=== PATIENT | female | born 1990 | race Caucasian/White ===

== ENCOUNTER 2018-03-26 20:20 | Emergency (ER) | payer BC ==
[2018-03-26] MEDS ORDERED: KETOROLAC 30 MG/ML VIAL IVP STA (20:55)
[2018-03-26] MEDS ORDERED: ONDANSETRON 4 MG/2 ML VIAL IVP STA (20:55)
[2018-03-26] MEDS ORDERED: SODIUM CHLORIDE 0.9% 1,000 ML IV ONE (20:55)
[2018-03-26 20:57] LABS: BILIRUBIN,URINE NEGATIVE (NEGATIVE); GLUCOSE, URINE (UA) NEGATIVE (NEGATIVE); KETONES,URINE (UA) 15 mg/dL (NEGATIVE); LEUKOCYTE ESTERASE, URINE NEGATIVE (NEGATIVE); NITRITE,URINE NEGATIVE (NEGATIVE); OCCULT BLOOD,URINE NEGATIVE (NEGATIVE); PH,URINE 6.5 PH (5.0-7.5); PROTEIN,URINE NEGATIVE (NEGATIVE); UROBILINOGEN,URINE 1 (NORMAL) E.U./dL (NORMAL)
--- NOTE | 2018-03-26 20:58 | ED Physician Documentation ---
PD HPI ABD PAIN - Stated complaint Stated Complaint: VOMITING/ADB CRAMPING - Chief complaint Chief Complaint: Abd Pain - History obtained from History obtained from: Patient, Family - History of Present Illness Timing - onset: Enter time (1529), Today Timing - duration: Hours Timing - details: Abrupt onset, Still present Quality: Sharp, Pain Location: RUQ, Epigastric Improved by: Laying still Worsened by: Moving, Breathing, Position, Palpation Associated symptoms: Nausea, Vomiting Similar symptoms before: Has not had sx before Recently seen: Not recently seen - Additional information Additional information: 27-year-old female who has had gastric sleeve surgery about 6 months ago has lost over 80 pounds and today she was sitting at [employer] when she began to develop some pain in the right upper quadrant. She states that the pain persisted she has become nauseated she has had some vomiting and when the pain persisted she is come to the emergency department. She states that she is today had some eggs to eat for breakfast in the morning and had eaten a protein bar at about noon. She denies prior episodes of similar pain. Review of Systems Constitutional: denies: Fever Eyes: denies: Decreased vision Ears: denies: Ear pain Nose: denies: Rhinorrhea / runny nose, Congestion Throat: denies: Sore throat Cardiac: denies: Chest pain / pressure, Palpitations Respiratory: denies: Dyspnea, Cough GI: reports: Abdominal Pain, Nausea, Vomiting : denies: Dysuria, Frequency Skin: denies: Rash Musculoskeletal: denies: Neck pain, Back pain, Extremity pain Neurologic: denies: Generalized weakness, Focal weakness, Numbness PD PAST MEDICAL HISTORY - Past Medical History Past Medical History: No - Past Surgical History Past Surgical History: Yes General: Gastric surgery - Present Medications Home Medications: Ambulatory Orders Medication Instructions Recorded Confirmed Bcp 03/26/18 - Allergies Allergies/Adverse Reactions: Allergies Allergy/AdvReac Type Severity Reaction Status Date / Time No Known Drug Allergies Allergy Verified 03/26/18 20:27 - Social History Does the pt smoke?: No Smoking Status: Never smoker Does the pt drink ETOH?: No Does the pt have substance abuse?: No - Immunizations Immunizations are current?: Yes PD ED PE NORMAL - Vitals Vital signs reviewed: Yes (normal) - General General: Alert and oriented X 3, No acute distress, Well developed/nourished - HEENT HEENT: Atraumatic, PERRL, EOMI - Neck Neck: Supple, no meningeal sign, No bony TTP - Cardiac Cardiac: RRR, No murmur - Respiratory Respiratory: No respiratory distress, Clear bilaterally - Abdomen Abdomen: Soft, Other (RUQ pain with arrest of respiration with palpation and inspiration ) - Back Back: No CVA TTP, No spinal TTP - Derm Derm: Normal color, Warm and dry, No rash - Extremities Extremities: No deformity, No edema - Neuro Neuro: Alert and oriented X 3, 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, No motor deficit, No sensory deficit, Normal speech Eye Opening: Spontaneous Motor: Obeys Commands Verbal: Oriented GCS Score: 15 - Psych Psych: Normal mood, Normal affect Results - Vitals Vitals: Vital Signs - 24 hr 03/26/18 03/26/18 20:25 21:33 Temperature 36.0 C L Heart Rate 66 47 L Respiratory 18 18 Rate Blood Pressure 115/70 118/55 L O2 Saturation 100 100 Oxygen O2 Source Room air - Labs Labs: Laboratory Tests 03/26/18 03/26/18 03/26/18 20:30 20:35 20:35 WBC 12.9 H RBC 4.31 Hgb 11.1 L Hct 34.8 L MCV 80.7 L MCH 25.7 L MCHC 31.9 L RDW 13.4 Plt Count 333 MPV 8.6 Neut # (Auto) 10.4 H Lymph # (Auto) 1.7 [place] # (Auto) 0.7 Eos # (Auto) 0.0 Baso # (Auto) 0.1 Absolute Nucleated RBC 0.01 Nucleated RBC % 0.1 Sodium 133 L Potassium 3.3 L Chloride 102 Carbon Dioxide 23 Anion Gap 8.0 BUN 14 Creatinine 0.7 Estimated GFR (MDRD) 100 Glucose 115 H Calcium 8.6 Total Bilirubin 0.8 AST 68 H ALT 40 Alkaline Phosphatase 75 Total Protein 7.4 Albumin 3.7 Globulin 3.7 Albumin/Globulin Ratio 1.0 Lipase 48 Urine Color YELLOW Urine Clarity CLEAR Urine pH 6.5 Ur Specific [place] 1.025 Urine Protein NEGATIVE Urine Glucose (UA) NEGATIVE Urine Ketones 15 H Urine Occult Blood NEGATIVE Urine Nitrite NEGATIVE Urine Bilirubin NEGATIVE Urine Urobilinogen 1 (NORMAL) Ur Leukocyte Esterase NEGATIVE Ur Microscopic Review NOT INDICATED Urine Culture Comments NOT INDICATED Urine HCG, Qual NEGATIVE - Rads (name of study) gb ultrasound Radiology: Prelim report reviewed (Impression: Multiple cholelithiasis without wall thickening or ductal dilation.), EMP read indepedently, See rad report Procedures - Bedside sono Bedside sono by EMP: With use of bedside ultrasound the right upper quadrant is imaged gallbladder is distended there are no obvious large stones there is some echogenicity to the inferior portion of the gallbladder. After manual decompression of the gallbladder the pain symptoms are somewhat improved reexamination of the gall bladder shows it to be slightly smaller than previously. PD MEDICAL DECISION MAKING - ED course Complexity details: reviewed results, re-evaluated patient, considered differential, d/w patient, d/w family ED course: 27-year-old female with a greater than 80 pound weight loss in the past 6 months has developed some symptoms of right upper quadrant pain today and has a distended gallbladder on bedside ultrasound examination she has some improvement with manual decompression of the gallbladder. She is administered intravenous saline Toradol and Zofran. Departure - Departure Disposition: 01 Home, Self Care Clinical Impression: Cholelithiasis Qualifiers: Cholelithiasis location: gallbladder Cholecystitis presence: without cholecystitis Biliary obstruction: without biliary obstruction Qualified Code(s): K80.20 - Calculus of gallbladder without cholecystitis without obstruction Condition: Stable Instructions: ED Gallstone W Biliary Colic Follow-Up: Gala Gorman MD [Primary Care Provider] - Radhames Calix MD [Provider Admit Priv/Credential] -
[2018-03-26 20:59] LABS: BASOPHILS # (AUTO) 0.1 10^3/uL (0.0-0.1); BASOPHILS % (AUTO) 0.5 %; EOSINOPHILS % (AUTO) 0.3 %; HGB - HEMOGLOBIN 11.1 g/dL (12.0-16.0); LYMPHOCYTES # (AUTO) 1.7 10^3/uL (1.5-3.5); LYMPHOCYTES % (AUTO) 13.5 %; MEAN CORPUSCULAR HEMOGLOBIN 25.7 pg (27.0-31.0); MEAN CORPUSCULAR HGB CONC 31.9 g/dL (32.0-36.0); MEAN CORPUSCULAR VOLUME 80.7 fL (81.0-99.0); MEAN PLATELET VOLUME 8.6 fL (7.9-10.8); MONOCYTES # (AUTO) 0.7 10^3/uL (0.0-1.0); MONOCYTES % (AUTO) 5.3 %; NEUTROPHILS # (AUTO) 10.4 10^3/uL (1.5-6.6); NEUTROPHILS % (AUTO) 80.4 %; PLT - PLATELET COUNT 333 10^3/uL (130-450); RED BLOOD COUNT 4.31 10^6/uL (4.20-5.40); RED CELL DISTRIBUTION WIDTH 13.4 % (12.0-15.0); WHITE BLOOD COUNT 12.9 x10^3/uL (4.8-10.8)
[2018-03-26 21:04] LABS: CLARITY,URINE CLEAR (CLEAR); HCG UR QUAL NEGATIVE
[2018-03-26 21:10] LABS: ALBUMIN 3.7 g/dL (3.2-5.5); BILIRUBIN,TOTAL 0.8 mg/dL (0.2-1.0); CALCIUM 8.6 mg/dL (8.5-10.3); CREATININE 0.7 mg/dL (0.4-1.0); TOTAL PROTEIN 7.4 g/dL (6.7-8.2)
[2018-03-26] MEDS ORDERED: POTASSIUM BICARB 25 MEQ TABLET PO STA (21:29)
--- NOTE | 2018-03-26 22:21 | Ultrasound Report ---
Reason: RUQ pain Procedure Date: 03/26/2018 Accession Number: [id number] / [id number] Procedure: US - Abdomen Limited CPT Code: FULL RESULT: EXAM: ABDOMEN ULTRASOUND LIMITED, RUQ EXAM DATE: 03/26/2018 09:40 PM. CLINICAL HISTORY: Right upper quadrant pain. COMPARISON: None. TECHNIQUE: Real-time scanning was performed with static images obtained. FINDINGS: Liver: Normal in size and echotexture. 18.3 cm. Main portal vein flow: Hepatopetal. Gallbladder: Multiple tiny shadowing gallstones. No wall thickening. Positive sonographic Cantu's sign. Biliary System: CBD measures 5 mm. No intrahepatic or extrahepatic ductal dilatation. Other: The visualized pancreas and right kidney are unremarkable. No free fluid. IMPRESSION: Multiple cholelithiasis without wall thickening or ductal dilatation. RADIA
[2018-03-26 22:48] VITALS: BP 111/67
== END 2018-03-26 22:43 | disposition home or self-care (01) ==
LOC: ED 20:20
DX: K82.0 Obstruction of gallbladder (principal)
CPT/HCPCS: 36415; 76705; 80053; 81003; 81025; 83690; 85025; 96361; 96374; 99283; 99284; A9270; 81001; 87086

== ENCOUNTER 2018-04-04 21:11 | Emergency (ER) | payer BC ==
[2018-04-04] MEDS ORDERED: fentaNYL 100 MCG/2 ML VIAL IVP STA (21:32)
[2018-04-04] MEDS ORDERED: ONDANSETRON 4 MG/2 ML VIAL IVP STA (21:32)
--- NOTE | 2018-04-04 21:32 | ED Physician Documentation ---
PD HPI ABD PAIN - Stated complaint Stated Complaint: NAUSEA/VOMITING - Chief complaint Chief Complaint: Abd Pain - Additional information Additional information: 28-year-old female presents the emergency department with complaints of epigastr ic pain with associated nausea and vomiting for the past 6 hours. The patient was recently diagnosed with gallstones. The pain today is similar to a biliary Colic in the past. The patient is also status post a gastric sleeve. No reports of chest pain, shortness of breath or lower abdominal pain or dysuria or diarrhea. Symptoms are described as moderate. No relieving factors Review of Systems Constitutional: denies: Fever, Chills Eyes: denies: Discharge Ears: denies: Ear pain Nose: denies: Congestion Throat: denies: Sore throat Cardiac: denies: Chest pain / pressure Respiratory: denies: Dyspnea GI: reports: Abdominal Pain, Nausea, Vomiting. denies: Constipation : denies: Dysuria Skin: denies: Rash Musculoskeletal: denies: Neck pain Neurologic: denies: Syncope PD PAST MEDICAL HISTORY - Past Surgical History Past Surgical History: Yes General: Gastric surgery - Present Medications Home Medications: Ambulatory Orders Medication Instructions Recorded Confirmed Bcp 1 tab PO DAILY 03/26/18 Famotidine [Pepcid] 20 mg PO BID #30 tablet 04/04/18 Ondansetron HCl [Zofran] 4 mg PO Q6HR PRN #30 tablet 04/04/18 - Allergies Allergies/Adverse Reactions: Allergies Allergy/AdvReac Type Severity Reaction Status Date / Time No Known Drug Allergies Allergy Verified 04/04/18 21:17 - Social History Does the pt smoke?: No Smoking Status: Never smoker Does the pt drink ETOH?: No Does the pt have substance abuse?: No - Immunizations Immunizations are current?: Yes PD ED PE NORMAL - General General: Alert and oriented X 3, No acute distress - HEENT HEENT: Atraumatic, PERRL, EOMI, Ears normal - Neck Neck: Supple, no meningeal sign - Cardiac Cardiac: RRR, Strong equal pulses - Respiratory Respiratory: No respiratory distress, Clear bilaterally - Abdomen Abdomen: Soft, Non distended. No: Non tender (Tender palpation in the epigastrium, no rebound or peritoneal signs) - Derm Derm: Normal color - Extremities Extremities: No deformity - Neuro Neuro: Alert and oriented X 3, Normal speech - Psych Psych: Normal affect Results - Vitals Vitals: Vital Signs - 24 hr 04/04/18 04/04/18 04/04/18 21:15 21:30 22:20 Heart Rate 77 54 L Respiratory 18 18 16 Rate Blood Pressure 122/70 124/69 O2 Saturation 100 100 Oxygen O2 Source Room air - Labs Labs: Laboratory Tests 04/04/18 04/04/18 04/04/18 21:28 21:28 21:28 WBC 9.0 RBC 4.19 L Hgb 11.2 L Hct 33.8 L MCV 80.6 L MCH 26.7 L MCHC 33.2 RDW 14.4 Plt Count 305 MPV 8.8 Neut # (Auto) 6.6 Lymph # (Auto) 1.8 [place] # (Auto) 0.5 Eos # (Auto) 0.0 Baso # (Auto) 0.0 Absolute Nucleated RBC 0.00 Nucleated RBC % 0.0 Sodium 138 Potassium 3.6 Chloride 104 Carbon Dioxide 24 Anion Gap 10.0 BUN 14 Creatinine 0.7 Estimated GFR (MDRD) 99 Glucose 105 H Calcium 8.7 Total Bilirubin 1.3 H AST 102 H ALT 71 H Alkaline Phosphatase 133 H Total Protein 7.6 Albumin 3.8 Globulin 3.8 Albumin/Globulin Ratio 1.0 Lipase 46 Serum HCG, Qual NEGATIVE Urine Color Urine Clarity Urine pH Ur Specific [place] Urine Protein Urine Glucose (UA) Urine Ketones Urine Occult Blood Urine Nitrite Urine Bilirubin Urine Urobilinogen Ur Leukocyte Esterase Urine RBC Urine WBC Ur Squamous Epith Cells Urine Bacteria Ur Microscopic Review Urine Culture Comments 04/04/18 22:30 WBC RBC Hgb Hct MCV MCH MCHC RDW Plt Count MPV Neut # (Auto) Lymph # (Auto) [place] # (Auto) Eos # (Auto) Baso # (Auto) Absolute Nucleated RBC Nucleated RBC % Sodium Potassium Chloride Carbon Dioxide Anion Gap BUN Creatinine Estimated GFR (MDRD) Glucose Calcium Total Bilirubin AST ALT Alkaline Phosphatase Total Protein Albumin Globulin Albumin/Globulin Ratio Lipase Serum HCG, Qual Urine Color YELLOW Urine Clarity HAZY Urine pH 7.0 Ur Specific [place] 1.020 Urine Protein NEGATIVE Urine Glucose (UA) NEGATIVE Urine Ketones NEGATIVE Urine Occult Blood NEGATIVE Urine Nitrite NEGATIVE Urine Bilirubin SMALL H Urine Urobilinogen 4 H Ur Leukocyte Esterase NEGATIVE Urine RBC 0-5 Urine WBC 0-3 Ur Squamous Epith Cells MOD Squamous H Urine Bacteria None Seen Ur Microscopic Review INDICATED Urine Culture Comments NOT INDICATED - Rads (name of study) CT abd/pelvis Radiology: Final report received, See rad report (IMPRESSION: Sleeve gastrectomy noted. Otherwise unremarkable abdomen and pelvis CT. ) PD MEDICAL DECISION MAKING - ED course ED course: Reevaluation the patient is resting comfortably and appears much improved and her workup does not reveal any acute etiology that would necessitate admission to the hospital or acute surgical consultation. The patient appears appropriate for discharge at this time and ongoing outpatient management. I discussed warning signs and recommended returning for any worsening or any concerns Departure - Departure Disposition: Home, Self Care Clinical Impression: Abdominal pain Qualifiers: Abdominal location: upper abdomen, unspecified Qualified Code(s): R10.10 - Upper abdominal pain, unspecified Condition: Good Instructions: Abdominal Pain, ED Gallstone W Biliary Colic, ED Nausea Vomiting, ED Gastritis Follow-Up: Gala Gorman MD [Primary Care Provider] - Within 1 week Prescriptions: Ondansetron HCl [Zofran] 4 mg PO Q6HR PRN #30 tablet PRN Reason: Nausea / Vomiting Famotidine [Pepcid] 20 mg PO BID #30 tablet Comments: Please follow-up with the general surgeon as scheduled for ongoing evaluation of your gallbladder Please return to the emergency department for any worsening or any concerns
[2018-04-04] MEDS ORDERED: FAMOTIDINE 20 MG in SODIUM CHLORIDE 0.9% 50 ML IV STA (21:33)
[2018-04-04] MEDS ORDERED: IOVERSOL 320 50 ML VIAL ONE (21:38)
[2018-04-04] MEDS ORDERED: IOVERSOL 320 100 ML VIAL IVP ONE ×2 (21:38→22:54)
[2018-04-04 21:44] LABS: BASOPHILS % (AUTO) 0.4 %; EOSINOPHILS % (AUTO) 0.5 %; HGB - HEMOGLOBIN 11.2 g/dL (12.0-16.0); LYMPHOCYTES # (AUTO) 1.8 10^3/uL (1.5-3.5); LYMPHOCYTES % (AUTO) 20.2 %; MEAN CORPUSCULAR HEMOGLOBIN 26.7 pg (27.0-31.0); MEAN CORPUSCULAR HGB CONC 33.2 g/dL (32.0-36.0); MEAN CORPUSCULAR VOLUME 80.6 fL (81.0-99.0); MEAN PLATELET VOLUME 8.8 fL (7.9-10.8); MONOCYTES # (AUTO) 0.5 10^3/uL (0.0-1.0); MONOCYTES % (AUTO) 5.9 %; NEUTROPHILS # (AUTO) 6.6 10^3/uL (1.5-6.6); PLT - PLATELET COUNT 305 10^3/uL (130-450); RED BLOOD COUNT 4.19 10^6/uL (4.20-5.40); RED CELL DISTRIBUTION WIDTH 14.4 % (12.0-15.0)
[2018-04-04 21:54] LABS: ALBUMIN 3.8 g/dL (3.2-5.5); BILIRUBIN,TOTAL 1.3 mg/dL (0.2-1.0); CALCIUM 8.7 mg/dL (8.5-10.3); CREATININE 0.7 mg/dL (0.4-1.0); TOTAL PROTEIN 7.6 g/dL (6.7-8.2)
[2018-04-04 22:34] LABS: HCG,QUALITATIVE BLOOD NEGATIVE
[2018-04-04 22:42] LABS: GLUCOSE, URINE (UA) NEGATIVE (NEGATIVE); KETONES,URINE (UA) NEGATIVE (NEGATIVE); LEUKOCYTE ESTERASE, URINE NEGATIVE (NEGATIVE); NITRITE,URINE NEGATIVE (NEGATIVE); OCCULT BLOOD,URINE NEGATIVE (NEGATIVE); PROTEIN,URINE NEGATIVE (NEGATIVE); UROBILINOGEN,URINE 4 E.U./dL (NORMAL)
[2018-04-04 22:47] LABS: BILIRUBIN,URINE SMALL (NEGATIVE); CLARITY,URINE HAZY (CLEAR); ICTOTEST,URINE POSITIVE
[2018-04-04 22:53] LABS: BACTERIA,URINE None Seen /HPF (None Seen); RBC,URINE 0-5 /HPF (0-5); SQUAMOUS EPITHELIAL CELL,UR MOD Squamous (<= Few)
[2018-04-04] MEDS ORDERED: IOVERSOL 320 50 ML VIAL PO ONE (22:54)
--- NOTE | 2018-04-04 23:22 | CT Report ---
Reason: epigastric pain Procedure Date: 04/04/2018 Accession Number: [id number] / [id number] Procedure: CT - Abdomen/Pelvis W CPT Code: FULL RESULT: EXAM: CT ABDOMEN AND PELVIS EXAM DATE: 04/04/2018 10:56 PM. CLINICAL HISTORY: Epigastric pain. COMPARISONS: ABDOMEN/PELVIS W/O 11/01/2014 6:05 PM. TECHNIQUE: Routine helical CT imaging was performed through the abdomen and pelvis. IV contrast: 80 cc of Optiray 320. Enteric contrast: Yes. Reconstructions: Coronal and sagittal. In accordance with CT protocol optimization, one or more of the following dose reduction techniques were utilized for this exam: automated exposure control, adjustment of mA and/or KV based on patient size, or use of iterative reconstructive technique. FINDINGS: Lung Bases: Unremarkable. Liver: Normal. No masses. Gallbladder/Bile Ducts: Unremarkable. Spleen: Normal. Pancreas: Normal. Adrenal Glands: Normal. Kidneys: Normal. No masses or hydronephrosis. Peritoneal Cavity/Bowel: Sleeve gastrectomy noted. No free fluid, free air or adenopathy. No masses or acute inflammatory process. The appendix is well visualized and normal. Pelvic Organs: Normal. The bladder and visualized pelvic organs are within normal limits. Vasculature: No aneurysms or other significant abnormality. Bones: No significant abnormality. Other: None. IMPRESSION: Sleeve gastrectomy noted. Otherwise unremarkable abdomen and pelvis CT. RADIA
[2018-04-04 23:43] VITALS: BP 100/56
== END 2018-04-04 23:43 | disposition home or self-care (01) ==
LOC: ED 21:11
DX: R10.13 Epigastric pain (principal); R11.2 Nausea with vomiting, unspecified; Z98.84 Bariatric surgery status
CPT/HCPCS: 36415; 74177; 80053; 81001; 83690; 84703; 85025; 96365; 96375; 99283; J7040; Q9967; 81003; 87086

== ENCOUNTER 2018-04-18 08:41 | Day surgery (SDC) | payer BC ==
[2018-04-18] MEDS ORDERED: LACTATED RINGERS 1,000 ML IV ONE (08:45)
[2018-04-18 09:03] LABS: HCG UR QUAL NEGATIVE
[2018-04-18] MEDS ORDERED: ceFAZolin 2 GM/50 ML 2 GM/50 ML BAG IV ONE (09:23)
--- NOTE | 2018-04-18 10:29 | ANESTHESIA ---
Pre-Anesthesia VS, & Labs - Diagnosis symptomatic cholecystitis - Procedure laparoscopic cholecystectomy Vital Signs: Temp Pulse Resp BP Pulse Ox 36.2 C L 55 L 12 105/69 100 04/18/18 08:53 04/18/18 08:53 04/18/18 08:53 04/18/18 08:53 04/18/18 08:53 Height 5 ft 4 in Weight (kg) 99.7 kg Body Mass Index 35.6 - NPO >8 hours - Is Patient ?: No Home Medications and Allergies Home Medications: Ambulatory Orders Norelgestromin/Ethin.estradiol [Xulane Patch] 1 each TD OAW 04/15/18 Norelgestromin/Ethin.estradiol [Xulane Patch] 1 each TD OAW 04/15/18 Allergies/Adverse Reactions: Allergies Allergy/AdvReac Type Severity Reaction Status Date / Time tree nut Allergy Hives Verified 04/15/18 08:15 Anes History & Medical History - Anesthetic History Anesthesia Complications: reports: No previous complications - Medical History Cardiovascular: reports: None Pulmonary: reports: None Gastrointestinal: reports: None, Other (increased BMI) Urinary: reports: None Musculoskeletal: reports: None Endocrine/Autoimmune: reports: None Skin: reports: Rosacea Smoking Status: Never smoker - Surgical History General: Gastric surgery Exam General: Alert Dental: WNL Mouth Opening: Greater than 4 Fingerbreadths Neck Mobility: Normal Mallampati classification: II Thyromental Distance: greater than 6 cm Respiratory: Lungs clear Cardiovascular: Regular rate Mental/Cognitive Status: Alert/Oriented X3 Plan Anesthesia Type: General Consent for Procedure(s) Verified and Reviewed: Yes Code Status: Attempt Resuscitation ASA classification: 2-Mild systemic disease Is this case an emergency?: No
[2018-04-18] MEDS ORDERED: IOTHALAMATE MEGLUMINE 50 ML VIAL ONE (10:40)
[2018-04-18] MEDS ORDERED: KETOROLAC 30 MG/ML VIAL IVP ONE (11:20)
[2018-04-18] MEDS ORDERED: SODIUM CHLORIDE 0.9% 10 ML VIAL IV ONE (11:20)
[2018-04-18] MEDS ORDERED: LIDOCAINE-MPF 2% 5 ML VIAL IM ONE (11:20)
[2018-04-18] MEDS ORDERED: fentaNYL 100 MCG/2 ML VIAL IVP ONE (11:20)
[2018-04-18] MEDS ORDERED: MIDAZOLAM 2 MG/2 ML VIAL IVP ONE (11:20)
[2018-04-18] MEDS ORDERED: ePHEDrine 50 MG/ML VIAL IVP ONE (11:20)
[2018-04-18] MEDS ORDERED: DEXAMETHASONE 4 MG/ML VIAL IVP ONE (11:20)
[2018-04-18] MEDS ORDERED: PROPOFOL 200 MG/20 ML VIAL IVP ONE (11:20)
[2018-04-18] MEDS ORDERED: ONDANSETRON 4 MG/2 ML VIAL IVP ONE (11:20)
[2018-04-18] MEDS ORDERED: ROCURONIUM 50 MG/5 ML VIAL IVP ONE (11:20)
[2018-04-18] MEDS: BUPIVACAINE 0.5%-EPI 1:200000 PF 30 ML VIAL ONE ×2 (11:43→12:18)
[2018-04-18] MEDS ORDERED: oxyCODONE 5 MG TABLET PO PRN ×2 (12:33→14:21)
[2018-04-18] MEDS ORDERED: ONDANSETRON 4 MG/2 ML VIAL IVP PRN (12:33)
[2018-04-18] MEDS ORDERED: ACETAMINOPHEN 325 MG TABLET PO PRN (12:33)
[2018-04-18] MEDS ORDERED: IBUPROFEN 600 MG TABLET PO PRN (12:33)
[2018-04-18] MEDS ORDERED: ACETAMINOPHEN 1,000 MG/100 ML 100 ML IV ONE (13:10)
[2018-04-18 14:22] VITALS: BP 105/66
--- NOTE | 2018-04-18 15:05 | OPERATIVE REPORT ---
DATE OF SERVICE: 04/18/2018 Physician: Radhames Calix MD PREOPERATIVE DIAGNOSIS: Symptomatic cholelithiasis. POSTOPERATIVE DIAGNOSIS: Symptomatic cholelithiasis. PROCEDURE PERFORMED: Laparoscopic cholecystectomy. ANESTHESIA: General endotracheal by Kai Hartley CRNA. SURGEON: Radhames Calix MD BLOOD LOSS: Minimal. COMPLICATIONS: None. FINDINGS: Laparoscopy revealed normal-appearing liver and visualized portions of the small and large bowel with the exception of the stomach, which showed a staple line consistent with a previous sleev e gastrectomy. The cystic duct was of normal caliber. Common duct was not visualized. Following re section, the gallbladder was seen to contain innumerable, tiny, sand-like particles and tiny stones. Approximately 1000 were present. INDICATIONS: Patient is a 28-year-old woman with a recent onset of postprandial epigastric and right upper quadrant pain, typically triggered by fatty foods. Evaluation included ultrasonography showin g multiple small stones within the gallbladder. Liver function tests showed transient mild abnormali ty. She was felt to be suffering from symptomatic gallbladder disease, likely with episodes of bilia ry colic and possible passing small stones. Advised to undergo laparoscopic cholecystectomy for defi nitive surgical treatment. TECHNIQUE: After informed consent, patient was taken to the operating room where she was placed unde r general endotracheal anesthesia. Preoperative preparation included application of sequential calf compression boots, administration of 2 grams cefazolin intravenously within an hour of the incision. Her abdomen was prepared with ChloraPrep solution and draped in the usual sterile fashion. Transverse incision was made along the inferior edge of the umbilicus and carried down through the la yers of the abdominal wall until the peritoneum was identified and entered sharply. A 10 mm Niharika c annula was inserted. Pneumoperitoneum was achieved with carbon dioxide. A 10 mm 30-degree [place] t elescope was inserted. Laparoscopy was carried out with findings noted above. Three 5 mm ports were placed in the right upper quadrant. Instruments were passed. The gallbladder was grasped and retra cted in a cephalad and lateral direction. Mild pericholecystic adhesions were lysed with electrocaut thalia and blunt dissection. The cystic triangle of [place] was exposed and carefully dissected until the critical view of safety was obtained. The cystic duct and artery were isolated adjacent to the gall bladder. Each was doubly clipped proximally and distally adjacent to the gallbladder and divided bet ween. The gallbladder was then excised from the liver bed using electrocautery for dissection and he mostasis. It was detached intact, placed in an organ retrieval bag, extracted, opened on a side tabl e with findings noted above and the tissue sent for pathologic evaluation. After hemostasis had been assured, the right upper quadrant was copiously irrigated with saline solut ion, following which instruments and cannulas were removed under direct vision. Pneumoperitoneum was allowed to escape and the incisions were closed in layers using continuous 0 Vicryl to reapproximate the midline fascia at the umbilicus, followed by 4-0 subcuticular Monocryl skin closure at all the p ort sites and 20 mL of 0.5% Marcaine with epinephrine was infiltrated into the incision to assist in postoperative analgesia. Dermabond was applied. Anesthesia was terminated and patient was transferr ed to the recovery room in satisfactory condition. The counts were correct x2. No drains were used. cc: Gala Gorman MD TD: 04/18/2018 12:47
== END 2018-04-18 08:42 | disposition home or self-care (01) ==
LOC: SDS 08:41
PROVIDERS: ATTEND Internal Medicine Gastroenterology
PROC: 0FT44ZZ Resection of Gallbladder, Percutaneous Endoscopic Approach (ICD-10-PCS; principal; 2018-04-18 10:00)
DX: K80.10 Calculus of gallbladder with chronic cholecystitis without obstruction (principal); E66.9 Obesity, unspecified; Z68.37 Body mass index [BMI] 37.0-37.9, adult
CPT/HCPCS: 47562; 81025; A9270; J0131; J0690; J7120; Q9961